=== PATIENT | female | born 1980 | race Two or more races ===

== ENCOUNTER 2021-01-17 19:15 | Emergency (ER) | payer OTHER ==
[~2021-01-17] VITALS: Ht 160 cm; Wt 66.7 kg
[2021-01-17 19:15] VITALS: BP 128/66
[2021-01-17] MEDS ORDERED: FAMOTIDINE 20 MG/2 ML VIAL IVP ONE (19:25)
[2021-01-17] MEDS ORDERED: diphenhydrAMINE 50 MG/ML VIAL IVP ONE (19:25)
[2021-01-17] MEDS ORDERED: DEXAMETHASONE 10 MG/ML VIAL IVP ONE (19:25)
[2021-01-17] MEDS ORDERED: ONDANSETRON 4 MG/2 ML VIAL IVP ONE (19:25)
[2021-01-17] MEDS ORDERED: EPIN1KIT31 IM (23:40)
[2021-01-18 00:05] VITALS: BP 95/53
== END 2021-01-18 00:05 | disposition home or self-care (01) ==
LOC: MED 19:15
DX: T78.02XA Anaphylactic reaction due to shellfish (crustaceans), initial encounter (principal); E03.9 Hypothyroidism, unspecified; X58.XXXA Exposure to other specified factors, initial encounter
CPT/HCPCS: 96374; 96375; 99285; J1100; J1200; J2405; J3490

== ENCOUNTER 2021-08-20 19:35 | Emergency (ER) | payer OTHER ==
[~2021-08-20] VITALS: Ht 160 cm; Wt 63.5 kg
[~2021-08-20 19:35] MED LIST: EPIN1KIT31 IM
[2021-08-20 19:57] VITALS: BP 139/61
--- NOTE | 2021-08-20 19:59 | NUR ---
to lobby a/w bed ambulatory
--- NOTE | 2021-08-20 20:51 | NUR ---
PT AMBULATED TO BED #3
--- NOTE | 2021-08-20 21:36 | NUR ---
Dr. Hines examining patient.
[2021-08-20] MEDS ORDERED: KETOROLAC 60 MG/2 ML VIAL IM ONE (21:40)
[2021-08-20] MEDS ORDERED: IBUP-2213 PO (21:56)
[2021-08-20] MEDS ORDERED: ACET-8386 PO (21:56)
[2021-08-20 22:05] VITALS: BP 139/61
--- NOTE | 2021-08-20 22:05 | NUR ---
Patient discharged with v/s stable. Written and verbal after care instructions given and explained. Patient alert, oriented and verbalized understanding of instructions. Ambulatory with steady gait. All questions addressed prior to discharge. ID band removed. Patient advised to follow up with PMD. Rx of HYDROCODONE, AND IBUPROFEN given. Patient educated on indication of medication including possible reaction and side effects. Opportunity to ask questions provided and answered.
== END 2021-08-20 22:05 | disposition home or self-care (01) ==
LOC: MED 19:35
DX: S63.92XA Sprain of unspecified part of left wrist and hand, initial encounter (principal); E07.9 Disorder of thyroid, unspecified; Z91.013 Allergy to seafood; Z79.899 Other long term (current) drug therapy; W23.0XXA Caught, crushed, jammed, or pinched between moving objects, initial encounter; Y93.89 Activity, other specified; Y92.89 Other specified places as the place of occurrence of the external cause; Y99.0 Civilian activity done for income or pay
CPT/HCPCS: 73110; 73130; 99284

== ENCOUNTER 2022-12-17 21:15 | Emergency (ER) | payer OTHER ==
[~2022-12-17] VITALS: Ht 160 cm; Wt 68.0 kg
[~2022-12-17 21:15] MED LIST changes: +ACET-8905 PO; +IBUP-2213 PO
--- NOTE | 2022-12-17 21:25 | NUR ---
TO LOBBY A/W BED AMBULATORY
--- NOTE | 2022-12-17 21:53 | NUR ---
PT TO BED #5
[2022-12-17] MEDS ORDERED: ACETAMINOPHEN EXTRA STRENGTH 500 MG TAB PO ONE (22:20)
[2022-12-17] MEDS ORDERED: ONDANSETRON 4 MG ODT PO ONE (22:20)
[2022-12-17] MEDS ORDERED: LIDOCAINE MPF 1% 10 MG/ML VIAL INJ ONE (22:20)
--- NOTE | 2022-12-17 22:26 | NUR ---
PT TO XRAY
--- NOTE | 2022-12-17 23:16 | NUR ---
DR VARGAS AT BEDSIDE
--- NOTE | 2022-12-17 23:20 | NUR ---
42YR OLD FEMALE BIB SELF. C/O HEAD LACERATION . SOCCER HIT PT IN FOREHEAD. LACERATION WITH CONTROLLED BLEEDING. 06/29 SHARP HEADACHE. +NAUSEA. DENIES VOMITING OR LOC. PT ALICIA AT BEDSIDE REPAIRING LACERATION SHRIMP NO MED HX
[2022-12-17] MEDS ORDERED: BACITRACIN OINT 500 UNITS/GM PKT TP ONE (23:30)
--- NOTE | 2022-12-17 23:35 | NUR ---
OINT APPLIED TO SUTURES. PENDING DISPO
[2022-12-18] MEDS ORDERED: ACET-10509 PO (00:29)
[2022-12-18] MEDS ORDERED: ONDA-188 PO (00:29)
[2022-12-18] MEDS ORDERED: BACI-105 TP (00:32)
--- NOTE | 2022-12-18 00:45 | NUR ---
Patient discharged with v/s stable. Written and verbal after care instructions given and explained to parent/guardian. Parent/Guardian verbalized understanding. Ambulatorysteady gait. All questions addressed prior to discharge. Advised to follow up with PMD.
--- NOTE | 2022-12-18 00:51 | NUR ---
The patient's care was reviewed and supervised by Rosa Chapa RN.
== END 2022-12-18 00:45 | disposition home or self-care (01) ==
LOC: MED 21:15
DX: S01.111A Laceration without foreign body of right eyelid and periocular area, initial encounter (principal); E03.9 Hypothyroidism, unspecified; Z91.013 Allergy to seafood; W21.02XA Struck by soccer ball, initial encounter; Y93.89 Activity, other specified; Y92.89 Other specified places as the place of occurrence of the external cause; Y99.8 Other external cause status
CPT/HCPCS: 12013; 70450; 99284; J2001; Q0162